=== PATIENT | female | born 1980 | race Caucasian/White ===

== ENCOUNTER 2017-07-10 21:07 | Emergency (ER) | payer MEDICAID ==
[2017-07-10] MEDS ORDERED: MORPHINE SULFATE IR 15 MG TABLET PO ONE (21:55)
[2017-07-10] MEDS ORDERED: ACETAMINOPHEN 325 MG TABLET PO ONE (21:55)
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
[2017-07-10 23:50] VITALS: BP 106/69
== END 2017-07-10 23:55 | disposition home or self-care (01) ==
LOC: ER 21:07
DX: S05.12XA Contusion of eyeball and orbital tissues, left eye, initial encounter (principal); S30.1XXA Contusion of abdominal wall, initial encounter; S60.211A Contusion of right wrist, initial encounter; S05.11XA Contusion of eyeball and orbital tissues, right eye, initial encounter; R51 Headache; Y04.8XXA Assault by other bodily force, initial encounter; X58.XXXA Exposure to other specified factors, initial encounter; R42 Dizziness and giddiness
CPT/HCPCS: 99284; 73110; 70450; 70486; 72125; J3490

== ENCOUNTER 2018-09-14 23:10 | Outpatient (CLI) | payer MEDICAID ==
[2018-09-14 23:50] LABS: APPEARANCE,URINE CLEAR; BILIRUBIN,URINE NEGATIVE (NEGATIVE); COLOR,URINE YELLOW; GLUCOSE, URINE >=500 mg/dL (NEGATIVE); KETONES,URINE NEGATIVE (NEGATIVE); LEUKOCYTE ESTERASE,URINE NEGATIVE (NEGATIVE); NITRITE,URINE NEGATIVE (NEGATIVE); PROTEIN,URINE NEGATIVE (NEGATIVE); URINE SPECIFIC GRAVITY 1.005; UROBILINOGEN,URINE NEGATIVE mg/dL (<2.0)
[2018-09-15 00:16] LABS: URINE AMPHETAMINES SCREEN NEGATIVE; URINE BARBITURATES SCREEN NEGATIVE; URINE BENZODIAZEPINES SCREEN NEGATIVE; URINE COCAINE SCREEN NEGATIVE; URINE METHADONE SCREEN NEGATIVE; URINE PHENCYCLIDINE SCREEN NEGATIVE
[2018-09-15 00:35] LABS: URINE MARIJUANA (THC) SCREEN UNCONFIRMED POSITIVE
--- NOTE | 2018-09-15 00:47 | Non Stress Test Report ---
Non Stress Test Datetime Report Generated by CPN: 09/15/2018 00:46 DEMOGRAPHIC Test Number: 1 EGA NST: 38.1 INDICATION Indication for Study: Ordered by Provider URINE RESULTS Urine Protein, NST: Positive MONITORING Monitor Explained: Monitor Explained; Test Explained; Patient Verbalized Understanding Time on Monitor: 09/14/2018 23:32 Time off Monitor: 09/15/2018 00:29 NST Duration: 57 NST INTERVENTIONS NST Interventions: PO Hydration; Reposition Patient Physician Notified NST: Dr. Pedraza BABY A: [id number] BABY A Movement : Present Contraction Frequency : occasional FHR Baseline : 130 Accelerations : 15X15 Decelerations : None Variability : Moderate 6-25bpm NST Review: Meets Criteria for Reactive NST NST Review and Verified By : Beka Zamudio RN NST Results: Reactive NST REPORT Report Trigger: Send Report
== END 2018-09-15 00:43 | disposition home or self-care (01) ==
LOC: EEVIPCON 23:10 → LC 23:10
PROVIDERS: ATTEND Obstetrics & Gynecology
PROC: 4A1HXCZ Monitoring of Products of Conception, Cardiac Rate, External Approach (ICD-10-PCS; principal; 2018-09-14)
DX: O47.1 False labor at or after 37 completed weeks of gestation (principal); O99.333 Smoking (tobacco) complicating pregnancy, third trimester; F17.210 Nicotine dependence, cigarettes, uncomplicated; O09.523 Supervision of elderly multigravida, third trimester; Z3A.38 38 weeks gestation of pregnancy
CPT/HCPCS: 59025; 81005; 80307; 84112; G0480 ×2; 80349